=== PATIENT | female | born 1945 | race Caucasian/White ===

== ENCOUNTER 2017-07-18 06:59 | Inpatient (IN) | payer MEDICARE ==
--- NOTE | 2017-07-15 14:56 | Diagnostic Imaging Report ---
PROCEDURE: Frontal and lateral views of the chest. COMPARISON: Patients [facility], , CHEST 2 VIEWS, 06/25/2014, 15:38. INDICATIONS: PRE OPERATIVE CHEST X-RAY FOR HIP SX FINDINGS: Lines/tubes: None. Lungs: The lungs are well inflated and clear. There is no evidence of pneumonia or pulmonary edema. Pleura: There is no pleural effusion or pneumothorax. Heart and mediastinum: Cardiac silhouette is unremarkable. Pulmonary vasculature is normal. Bones: No acute bony abnormality. Partially visualized fusion hardware in the lower cervical spine. Increase in the acromiohumeral interval bilaterally, likely reflecting laxity IMPRESSION: 1. No acute cardiopulmonary abnormalities. Tone Valerio M.D. Dictated by: Tone Valerio M.D. on 07/15/2017 at 15:05 Electronically approved by: Tone Valerio M.D. on 07/15/2017 at 15:05
[~2017-07-18] VITALS: Ht 160 cm; Wt 71.4 kg
[~2017-07-18 06:59] MED LIST: AMLODIPINE BESYL5 MG PO; ASPIRIN EC81 MG PO; ATORVASTATIN CA10 MG PO; BIOTIN10 MG PO; CALCIUM GUMMY; CENTRUM SILVER1 EAC3 PO; CHOLECALCIFEROL; D3 PO; FISH OIL 1,2001 EACH PO; GABAPENTIN300 MG PO; GARLIC1000 MG PO; GLUCOSAMINE1000 MG PO; GUMMI BEAR MUL1 EACH; HYDROCHLOROTHIA25 MG PO; LOSARTAN POTASS25 MG PO; MAGNESIUM27 MG PO; METHOCARBAMOL750 MG PO; NAPROXEN250 MG PO; OSTEO BI-FLEX1 EAC2; POTASSIUM GLUCONATE PO
[2017-07-18] MEDS ORDERED: DEXAMETHASONE SOD PHOS 10 MG/1 ML VIAL ONE (07:20)
[2017-07-18] MEDS ORDERED: CELECOXIB 200 MG CAP ONE (07:20)
[2017-07-18] MEDS ORDERED: GABAPENTIN 300 MG CAP ONE (07:20)
[2017-07-18] MEDS ORDERED: CEFAZOLIN SOD 2 GM/D5W 50ML 50 ML IV ONE (07:21)
[2017-07-18] MEDS ORDERED: ROPIVACAINE 246.25 MG, EPINEPHRINE HCL 1:1000 0.5 MG, CLONIDINE HCL 0.08 MG, KETOROLAC ... INJ ONE ×5 (07:30)
[2017-07-18] MEDS ORDERED: BUPIVACAINE 7.5MG/ML /DEXTROSE 82.5MG/ML 2 ML AMP INJ ONE (07:58)
[2017-07-18] MEDS ORDERED: MUPIROCIN 2% OINT 22 GM TUBE ONE (08:03)
[2017-07-18] MEDS ORDERED: BACITRACIN 50,000 UNIT VIAL ONE (08:04)
[2017-07-18] MEDS ORDERED: TRANEXAMIC ACID 1,000 MG/10 ML ML ONE (08:04)
[2017-07-18] MEDS ORDERED: DIPHENHYDRAMINE HCL INJ 50 MG/ML VIAL IM/IV PRN (09:45)
[2017-07-18] MEDS ORDERED: ONDANSETRON HCL INJ 2 MG/ML VIAL IV PRN (09:45)
[2017-07-18] MEDS ORDERED: PROMETHAZINE HCL (IM) 25 MG/ML VIAL INJ PRN (09:45)
[2017-07-18] MEDS ORDERED: DOCUSATE SODIUM 100 MG CAP PO PRN (09:45)
[2017-07-18] MEDS ORDERED: ACETAMINOPHEN 650 MG SUPP PR PRN (09:45)
[2017-07-18] MEDS ORDERED: ZOLPIDEM TARTRATE 5 MG TAB PO PRN (09:45)
--- NOTE | 2017-07-18 10:30 | Operative Report ---
DATE OF PROCEDURE: July 18, 2017 POWER WHEELCHAIR MECHANIC: Sudarshan Johnson PA-C The patient was brought to the operating room for induction of anesthesia. Throughout this case, my PA's assistance was necessary for retraction of soft tissue and positioning of the extremity. This allows for efficient and technically successful execution of the operation and is considered medically necessary. PREOPERATIVE DIAGNOSIS: Osteoarthritis, right hip. POSTOPERATIVE DIAGNOSIS: Osteoarthritis, right hip. PROCEDURE: Right total hip arthroplasty. INDICATIONS: The patient is a 81-year-old lady with end-stage arthritis of both hips. She is more symptomatic on the right. She has failed conservative management and would like to proceed with a right total hip replacement. I have reviewed the risks and benefits. All of her questions have been answered. She states she understands and wishes to proceed. DESCRIPTION OF PROCEDURE: The patient was brought to the operating room and given a spinal anesthetic. She received prophylactic antibiotics and tranexamic acid in the holding area. She was given a light general anesthetic and positioned in the left lateral decubitus position. Her right hip was prepped and draped in a sterile manner. Severe contracture of the hip was noted during prepping. A preoperative time out was performed. A limited incision posterior approach was made to the right hip. Hemostasis was obtained with electrocautery. Abundant subcutaneous adipose tissue was encountered. A deep Charnley self-retaining retractor was placed. Care was taken to avoid injury to the sciatic nerve. The posterior capsule was carefully exposed, and additional hemostasis was obtained with electrocautery. The capsule was released as were the piriformis and short external rotators. The hip was dislocated. Complete loss and erosive arthritis of the articular cartilage were noted. An oscillating saw was used to resect the femoral head. Acetabular retractors were then placed. The remnant of the labrum was mostly calcified. The true floor of the acetabulum was established with a 46-mm reamer. A Karol [employer] system was used. The socket was carefully reamed up to 53 mm. A large subchondral cyst in the superior dome was debrided with a curet. Autologous bone graft taken from the shaft of the femur was then impacted into the previous cystic lesion. The hip was thoroughly irrigated. A 54 mm outer diameter OsseoTi socket was impacted into place. Excellent fixation was obtained. Fixation was augmented with a single 25-mm screw placed into the ilium. A highly crosslink polyethylene liner with no posterior elevation and a 36-mm inner diameter was then impacted into place. Care was taken to make sure that there was no evidence of soft-tissue interposition. A portion of a 100-mL premixed pericapsular MURPHY injection was placed around the socket. The socket was packed with moistly soaked lap sponge, and attention was directed towards the proximal femur. A taper pin reamer was used to establish entry to the femoral canal. The Taperloc broaches were then impacted and trialed. A #9 stem had good stability for trial reduction. A standard 36-mm head was felt to provide optimal sabianism of limb length and stability. The trial implants were removed. The hip was further irrigated with a shower-tip pulsatile lavage. The remainder of the pericapsular injection was placed. The implant was seated. The trunnion was cleaned and was completely dry when a 36-mm head with a standard neck was seated onto the trunnion. A final reduction was performed. The hip was put through range of motion and felt to be stable. The posterior capsule was repaired with interrupted #2 Ethibond. The piriformis was also seated over the posterior capsule and tensioned with #2 Ethibond. The tensor fascia and gluteal fascia were closed with interrupted #2 Ethibond. The skin was closed with subcuticular Vicryl and rosie. A sterile bandage was applied. Estimated blood loss was about 50 mL. At the end of the procedure, all needle and sponge counts were correct. Job#: [id number]
--- NOTE | 2017-07-18 12:05 | Diagnostic Imaging Report ---
PROCEDURE:X-RAY PELVIS, AP VIEW COMPARISON:01/17/2017 right hip radiographs INDICATIONS:POST OP RIGHT HIP FINDINGS: refer to conclusion CONCLUSION: Status post total right hip arthroplasty with intact and appropriately positioned acetabular And femoral stem components. Expected subcutaneous gas and skin rosie. No periprosthetic displaced fracture. Advanced degenerative joint disease of the left hip. Dictated by: Papo Redd M.D. on 07/18/2017 at 12:14 Electronically approved by: Papo Redd M.D. on 07/18/2017 at 12:14
[2017-07-18] MEDS: SODIUM CHLORIDE 0.9% 1000ML 1,000 ML IV SCH ×2 (12:22→19:39)
[2017-07-18] MEDS: ACETAMINOPHEN 1000 MG/100 ML IV SCH ×3 (12:22→23:45)
[2017-07-18 12:32] VITALS: BP 118/59
[2017-07-18 12:33] VITALS: BP 118/59
[2017-07-18 12:34] VITALS: BP 118/59
[2017-07-18] MEDS ORDERED: MIDAZOLAM HCL 2 MG/2 ML VIAL ONE (12:50)
[2017-07-18] MEDS ORDERED: FENTANYL CITRATE/PF 100MCG/2 ML INJ ONE (12:50)
[2017-07-18] MEDS: CEFAZOLIN SOD 1 GM VIAL IV SCH ×2 (13:55→21:51)
[2017-07-18] MEDS ORDERED: CEFAZOLIN SOD 1 GM/NS 50ML 50 ML IV SCH (14:00)
[2017-07-18] MEDS ORDERED: NEOSTIGMINE 5 MG/5ML SYR ONE (15:15)
[2017-07-18] MEDS ORDERED: PROPOFOL IV EMULSION 10 MG/ML 20 ML VIAL ONE (15:15)
[2017-07-18] MEDS ORDERED: DEXAMETHASONE SOD PHOS INJ 4 MG/ML VIAL ONE (15:15)
[2017-07-18] MEDS ORDERED: ONDANSETRON HCL INJ 2 MG/ML VIAL ONE (15:15)
[2017-07-18] MEDS ORDERED: KETOROLAC TROMETHAMINE 30 MG/ML VIAL ONE (15:15)
[2017-07-18] MEDS ORDERED: SEVOFLURANE INHAL SOLN 250 ML PEN BTL ONE (15:15)
[2017-07-18] MEDS ORDERED: LIDOCAINE HCL 2% LOCAL INJ 5 ML SDV VIAL INJ ONE (15:15)
[2017-07-18] MEDS ORDERED: GLYCOPYRROLATE INJ 1MG/ 5 ML SYR ONE (15:15)
[2017-07-18 15:44] VITALS: BP_SYST 134; BP_SYST 141; BP_DIAS 60; BP_DIAS 72
[2017-07-18] MEDS: CELECOXIB 200 MG CAP PO SCH (16:39)
[2017-07-18] MEDS: ASPIRIN 325 MG TAB PO SCH (16:39)
[2017-07-18] MEDS: KETOROLAC TROMETHAMINE 30 MG/ML VIAL IV PRN (16:51)
[2017-07-18] MEDS ORDERED: CELECOXIB 100 MG CAP PO SCH (17:00)
[2017-07-18] MEDS: HYDROCODONE/APAP 7.5MG-325MG 1 EA TAB PO PRN (17:37)
[2017-07-18 19:53] VITALS: BP 135/69
[2017-07-18 20:35] VITALS: BP 135/69
[2017-07-18] MEDS ORDERED: ATORVASTATIN 10 MG TAB PO SCH (21:00)
[2017-07-19 00:08] VITALS: BP 129/71
[2017-07-19 04:25] VITALS: BP 130/65
[2017-07-19] MEDS: SODIUM CHLORIDE 0.9% 1000ML 1,000 ML IV SCH (05:39)
[2017-07-19] MEDS: ACETAMINOPHEN 1000 MG/100 ML IV SCH (06:00)
[2017-07-19] MEDS: HYDROCODONE/APAP 5MG-325MG TAB PO PRN ×2 (06:12→12:17)
[2017-07-19] MEDS: CEFAZOLIN SOD 1 GM VIAL IV SCH (06:12)
[2017-07-19 06:58] LABS: HEMATOCRIT 31.1 % (34.2-44.1); HEMOGLOBIN 10.5 g/dL (12.0-16.0)
[2017-07-19 08:01] VITALS: BP 124/67
[2017-07-19] MEDS: HYDROCODONE/APAP 7.5MG-325MG 1 EA TAB PO PRN (08:14)
[2017-07-19] MEDS: ASPIRIN 325 MG TAB PO SCH (08:14)
[2017-07-19] MEDS: CELECOXIB 200 MG CAP PO SCH (08:14)
[2017-07-19] MEDS ORDERED: ASPIRIN325 MG PO (08:26)
[2017-07-19 08:33] VITALS: BP 124/67
[2017-07-19] MEDS ORDERED: HYDROCHLOROTHIAZIDE 25 MG TAB PO SCH (09:00)
[2017-07-19] MEDS ORDERED: AMLODIPINE BESYLATE 5 MG TAB PO SCH (09:00)
[2017-07-19] MEDS ORDERED: ACETAMINOPHEN 1000 MG/100 ML IV PRN (09:45)
[2017-07-19] MEDS: KETOROLAC TROMETHAMINE 30 MG/ML VIAL IV PRN (12:17)
== END 2017-07-19 14:49 | disposition home health service (06) | DRG 470 ==
LOC: OR 06:59 → MED/SURG 10:49
PROVIDERS: ADMIT Specialist; ATTEND Specialist
PROC: 0SR904Z Replacement of Right Hip Joint with Ceramic on Polyethylene Synthetic Substitute, Open Approach (ICD-10-PCS; principal; 2017-07-18 08:30)
DX: M16.11 Unilateral primary osteoarthritis, right hip (principal); I10 Essential (primary) hypertension; D64.9 Anemia, unspecified
CPT/HCPCS: 36415; 71020; 72170; 85014; 85018; 86850; 86900; 86920; 93005; 97139; C1713; J0171; J0690; J1100; J1885; J2001; J2250; J2405; J2795; J7030

== ENCOUNTER 2017-07-31 13:38 | Emergency (ER) | payer OTHER ==
[~2017-07-31] VITALS: Ht 160 cm; Wt 68.0 kg
[~2017-07-31 13:38] MED LIST changes: +ASPIRIN325 MG PO
--- OUTSIDE RECORDS SUMMARY | 2017-07-31 13:41 | XMS REPORT ---
Author Author [facility] Address Unknown Phone Unavailable Care Team Providers Care Stapler Coil Unit Name Role Phone ALEJANDRO RAPP Unavailable Unavailable Problems This patient has no known problems. Allergies, Adverse Reactions, Alerts This patient has no known allergies or adverse reactions. Medications This patient has no known medications. Results Test Description Test Time Test Comments Text Results Atomic Results Result Comments PELVIS AP 1-2 VIEWS [place] [address] Patient Name: LINO HERNANDEZ MR #: [id number] : 1945 Age/Sex: 71/F Req # : [id number] [facility] Physician: ALEJANDRO RAPP MD Ordered by: ALEJANDRO RAPP MD Report #: [id number] Location: MED/SURG Room/Bed: [facility] _ Procedure: [id number] DX/PELVIS AP 1-2 VIEWS Exam Date: 07/18/17 Exam Time: 1020 REPORT STATUS: Signed PROCEDURE: X- RAY PELVIS, AP VIEW COMPARISON: 01/17/2017 right hip radiographs INDICATIONS: POST OP RIGHT HIP FINDINGS: refer to conclusion CONCLUSION: Status post total right hip arthroplasty with intact and appropriately positioned acetabular And femoral stem components. Expected subcutaneous gas and skin rosie. No periprosthetic displaced fracture. Advanced degenerative joint disease of the left hip. Dictated by: Alejandro Nascimento M.D. on 07/18/2017 at 12:14 Electronically approved by: Alejandro Nascimento M.D. on 07/18/2017 at 12:14 Dictated By: ALEJANDRO NASCIMENTO MD 13 Transcribed By: GIANNA on 07/18/171213 COPY TO: ALEJANDRO RAPP MD CHEST 2 VIEWS [place] [address] Patient Name: LINO HERNANDEZ MR #: [id number] : 1945 Age/Sex: 71/F Req #: [id number] Adm Physician: Ordered by: JACOB SHORT MD Report #: [id number] Location: OR Room/Bed: Procedure: [id number] DX/CHEST 2 VIEWS Exam Date: Exam Time: REPORT STATUS: Signed PROCEDURE: Frontal and lateral views of the chest. COMPARISON: [facility], DX, CHEST 2 VIEWS, 06/25/2014, 15: 38. INDICATIONS: PRE OPERATIVE CHEST X-RAY FOR HIP SX FINDINGS : Lines/tubes: None. Lungs: The lungs are well inflated and clear. There is no evidence of pneumonia or pulmonary edema. Pleura: There is no pleural effusion or pneumothorax. Heart and mediastinum: Cardiac silhouette is unremarkable. Pulmonary vasculature is normal. Bones: No acute bony abnormality. Partially visualized fusion hardware in the lower cervical spine. Increase in the acromiohumeral interval bilaterally, likely reflecting laxity IMPRESSION: 1. No acute cardiopulmonary abnormalities. Marisol Valerio M.D. Dictated by: Marisol Valerio M.D. on 07/15/2017 at 15:05 Electronically approved by: Marisol Valerio M.D. on 07/15/2017 at 15:05 Dictated By: MARISOL VALERIO MD 150 Transcribed By: GIANNA on 07/15/17 1500 COPY TO: JACOB SHORT MD
[2017-07-31] MEDS ORDERED: BACITRACIN ZINC 0.9GM TP ONE (14:00)
[2017-07-31 14:56] LABS: BASOPHILS # (AUTO) 0.1 (0.0-0.1); BASOPHILS % 0.5 % (0.0-1.0); EOSINOPHILS # (AUTO) 0.1 (0.0-0.4); EOSINOPHILS % 0.7 % (0.0-6.0); HEMATOCRIT 31.5 % (34.2-44.1); HEMOGLOBIN 10.4 g/dL (12.0-16.0); LYMPHOCYTES # (AUTO) 2.2 (1.0-3.2); LYMPHOCYTES % 15.1 % (18.0-39.1); MEAN CORPUSCULAR HEMOGLOBIN 29.5 pg (28-32); MEAN CORPUSCULAR VOLUME 89.2 fL (81-99); MONOCYTES # (AUTO) 0.7 (0.2-0.8); MONOCYTES % 4.9 % (4.4-11.3); NEUTROPHILS # (AUTO) 11.5 (2.1-6.9); NEUTROPHILS % 77.9 % (38.7-80.0); PLATELET COUNT 450 x10e3/uL (140-360); RED BLOOD COUNT 3.53 x10e6/uL (3.6-5.1); RED CELL DISTRIBUTION WIDTH 12.7 % (11.7-14.4)
[2017-07-31 15:01] LABS: INR 0.97; PROTHROMBIN TIME 13.4 seconds (11.9-14.5)
[2017-07-31 16:18] VITALS: BP 139/73
[2017-08-03] MEDS ORDERED: KEFLEX500 MG PO (10:57)
[2017-08-03] MEDS ORDERED: BLADDER CONTROL (10:58)
== END 2017-07-31 16:28 | disposition home or self-care (01) ==
LOC: ER 13:38
DX: Z48.01 Encounter for change or removal of surgical wound dressing (principal)
CPT/HCPCS: 36415; 85025; 85610; 85730; 99283

== ENCOUNTER 2017-08-04 10:54 | Inpatient (IN) | payer MEDICARE, OTHER ==
[~2017-08-04] VITALS: Ht 160 cm; Wt 69.6 kg
[~2017-08-04 10:54] MED LIST changes: +BLADDER CONTROL; +KEFLEX500 MG PO
--- OUTSIDE RECORDS SUMMARY | 2017-08-04 10:56 | XMS REPORT | Continuity of Care Document ---
Author Author [facility] Organization [facility] Address [address] [place] [address] Phone Unavailable Care Team Providers Care Plate Slitter And Inspector Name Role Phone RICHELLE FLORES PCP Insurance Providers Guarantor Zoraida Hernandez Address [address] [place] [address] Email [email or web address] [facility] Policy Number [id number] Subscriber's Name Hernandez,Zoraida Relationship 18 Self / Same As Patient Group Number [id number] Effective Date 11 Advance Directives Directive Response Recorded Date/Time Does the patient have an advance directive? No 07/18/17 12:07pm If yes, is advance directive on file with [facility]? No 09/07/11 10:38am If not on file with [facility] will patient provide a copy? No 09/07/11 10:38am Do you have a Directive to Physician? No 07/31/17 2:28pm Do you have a Medical Power of Sql Engineer? No 07/31/17 2:28pm Do you have an out of hospital Do Not Resuscitate Order? No 07/31/17 2:28pm Do you have any special needs we should be aware of? No 07/31/17 2:28pm Do you have a support person here with you today? Yes 07/31/17 2:28pm Did patient receive Notice of Privacy Practices? Yes 07/31/17 2:28pm Did patient receive patient rights and responsibilities? Yes 07/31/17 2:28pm Problems No problem information available. Medications Current Home Medications Medication Dose Units Route Directions Days Qty Instructions Start Date Amlodipine Besylate 5 Mg Tablet 5 Mg Oral Daily 30 Tab Aspirin 325 Mg Tablet 325 Mg Oral Twice A Day 21 Days 07/19/17 Atorvastatin Calcium 10 Mg Tablet 10 Mg Oral Today At 9:00PM 30 Tab Biotin 10 Mg Tablet 10 Mg Oral Daily Calcium Gummy D3 Gummy Glucosamine Sulfate 2KCL (Glucosamine) 1,000 Mg Tablet Oral Daily Hydrochlorothiazide 25 Mg Tablet 25 Mg Oral Daily 30 Tab Magnesium Amino Acid Chelate (Magnesium) 27 Mg Tablet 250 Mg Oral Daily Mu-Vits-Min Th/Lycopene/Lutein (Centrum Silver Tablet) 1 Each Tablet Oral Daily Potassium Gluconate 595 Mg Oral Daily Past Home Medications Medication Directions Ordered Status Aspirin (Aspirin Ec) 81 Mg Tablet.dr, 81 Mg Oral Daily Discontinued D3 , 5000 Intlu Oral Daily Discontinued Fish Oil/Dha/Epa (Fish Oil 1,200 Mg Fish Oil) 1 Each Capsule, 1200 Mg Oral Daily Discontinued Gabapentin 300 Mg Capsule, 300 Mg Oral Bedtime Discontinued Garlic 1,000 Mg Capsule, 1000 Oral Daily Discontinued Glucosamine/D3/Boswellia Rosalind (Osteo Bi-Flex Caplet) 1 Each Tablet, Discontinued Losartan Potassium 25 Mg Tablet, 25 Mg Oral Daily Discontinued Methocarbamol 750 Mg Tablet, 750 Mg Oral Bedtime Discontinued Multivitamin (Gummi Bear Multivitamin) 1 Each Tab.chew, Discontinued Naproxen 250 Mg Tablet, 500 Mg Oral Twice A Day Discontinued Social History Social History Problem Response Recorded Date/Time Onset Date Status Hx Psychiatric Problems No 07/18/2017 12:07pm Not Applicable Not Applicable Hx Eating Disorder No 07/18/2017 12:07pm Not Applicable Not Applicable Hx Substance Use Disorder No 07/18/2017 12:07pm Not Applicable Not Applicable Hx Depression No 07/18/2017 12:07pm Not Applicable Not Applicable Hx Alcohol Use No 07/18/2017 12:07pm Not Applicable Not Applicable Hx Substance Use Treatment No 07/18/2017 12:07pm Not Applicable Not Applicable Hx Physical Abuse No 07/18/2017 12:07pm Not Applicable Not Applicable Smoking Status Start Date Stop Date Never Smoker Hospital Discharge Instructions No hospital discharge instruction information available. Plan of Care Discharge Date 07/31/17 4:28pm Disposition HOME, SELF-CARE Condition at Discharge Stable Instructions/Education Provided Wound Care (General) Forms Provided Work/School Excuse Prescriptions See Medication Section Referrals RICHELLE FLORES Address: [address] [place] [address] [place]IM[place] [address] Additional Instructions/Education Your diagnosis today is Wound check. Follow up with your Orthopedic surgeon on Tuesday as instructed by your doctor. Return to ER for any worsening symptoms or concerns. Take Keflex as prescribed. No strenuous activity. Functional Status No functional status information available. Allergies, Adverse Reactions, Alerts Allergen Type Severity Reaction Status Last Updated Ibuprofen Allergy Intermediate HIVES Active 07/31/17 Immunizations No immunization information available. Vital Signs Acute Vital Signs Vital Response Date/Time Temperature (Fahrenheit) 96.7 degrees F (97.6 - 99.5) 07/19/2017 8:33am Pulse Pulse Rate (adult) 83 bpm (60 - 90) 07/31/2017 4:18pm Respiratory Rate 16 bpm (12 - 24) 07/31/2017 4:18pm Blood Pressure 139/73 mm Hg 07/31/2017 4:18pm Height 5 ft 3 in 07/31/2017 1:57pm Weight 150 lb 07/31/2017 1:57pm Body Mass Index 26.6 kg/m^2 07/31/2017 1:57pm Results Laboratory Results Test Name Result Units Flags Reference Collection Date/Time Result Date/ Time Comments White Blood Count 14.75 x10e3/uL H 4.8-10.8 07/31/2017 2:20pm 2017 2:59pm Red Blood Count 3.53 x10e6/uL L 3.6-5.1 07/31/2017 2:20pm 07/31/2017 2: 59pm Hemoglobin 10.4 g/dL L 12.0-16.0 07/31/2017 2:20pm 07/31/2017 2:59pm Hematocrit 31.5 % L 34.2-44.1 07/31/2017 2:20pm 07/31/2017 2:59pm Mean Corpuscular Volume 89.2 fL 81-99 07/31/2017 2:20pm 07/31/2017 2: 59pm Mean Corpuscular Hemoglobin 29.5 pg 28-32 07/31/2017 2:20pm 07/31/2017 2:59pm Mean Corpuscular Hemoglobin Concent 33.0 g/dL 31-35 07/31/2017 2:20pm 07/31/2017 2:59pm Red Cell Distribution Width 12.7 % 11.7-14.4 07/31/2017 2:20pm 2017 2:59pm Platelet Count 450 x10e3/uL H 140-360 07/31/2017 2:20pm 07/31/2017 2: 59pm Neutrophils (%) (Auto) 77.9 % 38.7-80.0 07/31/2017 2:20pm 07/31/2017 2: 59pm Lymphocytes (%) (Auto) 15.1 % L 18.0-39.1 07/31/2017 2:20pm 07/31/2017 2 :59pm Monocytes (%) (Auto) 4.9 % 4.4-11.3 07/31/2017 2:20pm 07/31/2017 2: 59pm Eosinophils (%) (Auto) 0.7 % 0.0-6.0 07/31/2017 2:20pm 07/31/2017 2: 59pm Basophils (%) (Auto) 0.5 % 0.0-1.0 07/31/2017 2:20pm 07/31/2017 2:59pm IM GRANULOCYTES % 0.9 % 0.0-1.0 07/31/2017 2:20pm 07/31/2017 2:59pm Neutrophils # (Auto) 11.5 H 2.1-6.9 07/31/2017 2:20pm 07/31/2017 2: 59pm Lymphocytes # (Auto) 2.2 1.0-3.2 07/31/2017 2:20pm 07/31/2017 2:59pm Monocytes # (Auto) 0.7 0.2-0.8 07/31/2017 2:20pm 07/31/2017 2:59pm Eosinophils # (Auto) 0.1 0.0-0.4 07/31/2017 2:20pm 07/31/2017 2:59pm Basophils # (Auto) 0.1 0.0-0.1 07/31/2017 2:20pm 07/31/2017 2:59pm Absolute Immature Granulocyte (auto 0.13 x10e3/uL H 0-0.1 07/31/2017 2: 20pm 07/31/2017 2:59pm Prothrombin Time 13.4 seconds 11.9-14.5 07/31/2017 2:20pm 07/31/2017 3: 03pm Prothromb Time International Ratio 0.97 07/31/2017 2:20pm 2017 3:03pm Oral Anticoagulant Therapy INR Values: 1. Low Intensity Therapy 1.5 - 2.0 2. Moderate Intensity Therapy 2.0 - 3.0 3. High Intensity Therapy(1) 2.5 - 3.5 4. High Intensity Therapy(2) 3.0 - 4.0 5. Panic Value INR > 5.0 Activated Partial Thromboplast Time 36.0 seconds H 23.8-35.5 07/31/2017 2 :20pm 07/31/2017 3:03pm Procedures Procedure Status Date Provider(s) REPLACEMENT OF R HIP JT WITH CERAMIC ON POLY, OPEN APPROACH Completed ALEJANDRO RAPP MD X-ray of chest, two views Active 07/15/17 JACOB SHORT MD Encounters Encounter Location Arrival/Admit Date Discharge/Depart Date Attending Provider Departed Emergency Room [facility] 07/31/17 1:38pm 4:28pm NAUN PRECIADO MD Discharged Inpatient [facility] 07/18/17 10:49am 2:49pm ALEJANDRO RAPP MD Registered Clinic [facility] 01/17/17 4:55pm RICHELLE FLORES
[2017-08-04] MEDS ORDERED: BACITRACIN 50,000 UNIT VIAL ONE (11:15)
[2017-08-04] MEDS ORDERED: OXYBUTYNIN CHLOR5 M1 PO (11:35)
[2017-08-04] MEDS ORDERED: BUPIVACAINE HCL 0.5% INJ 30 ML VIAL INJ ONE (11:47)
[2017-08-04] MEDS ORDERED: VANCOMYCIN 1GM/NS 250 ML 250 ML ONE (11:48)
[2017-08-04] MEDS ORDERED: KETOROLAC TROMETHAMINE 30 MG/ML VIAL IV PRN (12:45)
[2017-08-04] MEDS ORDERED: ONDANSETRON HCL INJ 2 MG/ML VIAL IV PRN (12:45)
[2017-08-04] MEDS ORDERED: ACETAMINOPHEN 650 MG SUPP PR PRN (12:45)
[2017-08-04] MEDS ORDERED: DOCUSATE SODIUM 100 MG CAP PO PRN (12:45)
[2017-08-04] MEDS ORDERED: DIPHENHYDRAMINE HCL INJ 50 MG/ML VIAL IM/IV PRN (12:45)
[2017-08-04] MEDS ORDERED: HYDROCODONE/APAP 5MG-325MG TAB PO PRN (12:45)
[2017-08-04] MEDS ORDERED: HYDROCODONE/APAP 7.5MG-325MG 1 EA TAB PO PRN (12:45)
[2017-08-04] MEDS ORDERED: PROMETHAZINE HCL (IM) 25 MG/ML VIAL INJ PRN (12:45)
[2017-08-04] MEDS ORDERED: FENTANYL CITRATE/PF 100MCG/2 ML INJ ONE ×2 (13:14→18:38)
--- NOTE | 2017-08-04 13:49 | Operative Report ---
DATE OF PROCEDURE: August 04, 2017 HEARING IMPAIRED TEACHER: Sudarshan Johnson PA-C The patient was brought to the operating room for induction of anesthesia. Throughout this case, my PA's assistance was necessary for retraction of soft tissue and positioning of the extremity. This allows for efficient and technically successful execution of the operation and is considered medically necessary. PREOPERATIVE DIAGNOSIS: Right hip wound hematoma. POSTOPERATIVE DIAGNOSIS: Right hip wound hematoma. PROCEDURE: Irrigation and debridement, evacuation of hematoma, right hip. INDICATIONS: The patient is a 71-year-old lady who is a little over 2 weeks status post a right total hip replacement. She had notified the office that she had some punctate drainage. She presented to the office earlier this week and had a dry bandage. We elected to observe this. She presented yesterday and again had a dry bandage. However, she had some pictures of a gauze pad that had become saturated with bloody drainage. For this reason, we have scheduled her for a right hip irrigation and debridement. The risks and benefits have been explained. The wound shows no signs of erythema. She has been on aspirin, and we have stopped this. She states she understands the plan of care and wishes to proceed. DESCRIPTION OF PROCEDURE: The patient was brought to the operating room and placed under general anesthetic. She was positioned in the left lateral decubitus position. Her right hip was prepped and draped in a sterile manner. A preoperative time out was performed. There was no drainage whatsoever throughout prepping and draping. The distal portion of the incision was opened up. There was, indeed, a fairly large liquified hematoma. This was thoroughly evacuated. Because of the size, I elected to extend the incision further proximally. All of the skin edges appeared healthy. What suspicious-looking tissue there was was sharply excised with a surgical knife. The wound was scrubbed with Betadine. The wound was thoroughly irrigated with a shower-tip pulsatile lavage. At the end of the debridement, all of the tissue appeared healthy. The hematoma was superficial. The incision was closed with numerous interrupted 2-0 Prolene stitches. A sterile wound vacuum was applied. The patient was extubated and transported to the recovery room in stable condition. Cultures were taken upon entering the wound. After that, vancomycin was started. She was transported to the recovery room in stable condition. Job#: [id number]
[2017-08-04 14:21] VITALS: BP 155/74
[2017-08-04 14:31] VITALS: BP 155/74
[2017-08-04 16:00] VITALS: BP 122/73
[2017-08-04] MEDS: SODIUM CHLORIDE 0.9% 1000ML 1,000 ML IV SCH ×2 (17:44→22:24)
[2017-08-04] MEDS: CELECOXIB 200 MG CAP PO SCH (17:44)
[2017-08-04] MEDS: ACETAMINOPHEN 1000 MG/100 ML IV SCH (17:44)
[2017-08-04] MEDS ORDERED: DEXAMETHASONE SOD PHOS INJ 4 MG/ML VIAL ONE (18:05)
[2017-08-04] MEDS ORDERED: PROPOFOL IV EMULSION 10 MG/ML 20 ML VIAL ONE (18:05)
[2017-08-04] MEDS ORDERED: ONDANSETRON HCL INJ 2 MG/ML VIAL ONE (18:05)
[2017-08-04] MEDS ORDERED: LIDOCAINE HCL 2% LOCAL INJ 5 ML SDV VIAL INJ ONE (18:05)
[2017-08-04] MEDS ORDERED: SEVOFLURANE INHAL SOLN 250 ML PEN BTL ONE (18:05)
[2017-08-04] MEDS ORDERED: MIDAZOLAM HCL 2 MG/2 ML VIAL ONE (18:38)
[2017-08-04 20:00] VITALS: BP 142/63
[2017-08-04] MEDS ORDERED: ZOLPIDEM TARTRATE 5 MG TAB PO PRN (21:00)
[2017-08-04] MEDS: VANCOMYCIN 1GM/NS 250 ML 250 ML IV SCH (22:00)
[2017-08-05] MEDS: ACETAMINOPHEN 1000 MG/100 ML IV SCH ×3 (01:30→12:00)
[2017-08-05 02:14] VITALS: BP 129/60
[2017-08-05 04:00] VITALS: BP 125/72
[2017-08-05 06:49] LABS: HEMATOCRIT 28.1 % (34.2-44.1); HEMOGLOBIN 9.1 g/dL (12.0-16.0)
[2017-08-05 08:00] VITALS: BP 153/81
[2017-08-05] MEDS: CELECOXIB 200 MG CAP PO SCH (08:36)
[2017-08-05] MEDS: SODIUM CHLORIDE 0.9% 1000ML 1,000 ML IV SCH (08:38)
[2017-08-05] MEDS: VANCOMYCIN 1GM/NS 250 ML 250 ML IV SCH (09:40)
[2017-08-05 12:00] VITALS: BP 138/77
[2017-08-05] MEDS ORDERED: ACETAMINOPHEN 1000 MG/100 ML IV PRN (12:45)
== END 2017-08-05 13:34 | disposition home or self-care (01) | DRG 464 ==
LOC: OR 10:54 → MED/SURG2 13:59
PROVIDERS: ADMIT Specialist; ATTEND Specialist
PROC: 0JBL0ZZ Excision of Right Upper Leg Subcutaneous Tissue and Fascia, Open Approach (ICD-10-PCS; principal; 2017-08-04 11:54)
DX: T84.51XA Infection and inflammatory reaction due to internal right hip prosthesis, initial encounter (principal); M96.830 Postprocedural hemorrhage of a musculoskeletal structure following a musculoskeletal system procedure; I10 Essential (primary) hypertension; Z96.641 Presence of right artificial hip joint; D64.9 Anemia, unspecified; M16.11 Unilateral primary osteoarthritis, right hip
CPT/HCPCS: 36415; 85014; 85018; 86850; 86870; 86880; 86900; 86905; 86920; 87071; 87075; 87186; 87205; 99001; J1100; J1200; J2001; J2250; J2405; J3370; J7030

== ENCOUNTER 2017-08-09 15:02 | Inpatient (IN) | payer MEDICARE, OTHER ==
[~2017-08-09] VITALS: Ht 160 cm; Wt 68.0 kg
[~2017-08-09 15:02] MED LIST changes: +OXYBUTYNIN CHLOR5 M1 PO
--- OUTSIDE RECORDS SUMMARY | 2017-08-09 15:06 | XMS REPORT | Continuity of Care Document ---
Author Author [facility] Organization [facility] Address [address] [place] [address] Phone Unavailable Care Team Providers Care Industrial Management Teacher Name Role Phone RICHELLE FLORSE PCP Insurance Providers Guarantor Zoraida Hernandez Address [address] [place] [address] Email [email or web address] Payer [employer] Policy Number [id number] Subscriber's Name TyreseZoraida Relationship 18 Self / Same As Patient Group Number [id number] Effective Date 11 Advance Directives Directive Response Recorded Date/Time Does the patient have an advance directive? No 08/04/17 2:27pm If yes, is advance directive on file with [facility]? No 08/04/17 2:27pm If not on file with [facility] will patient provide a copy? No 08/04/17 2:27pm Do you have a Directive to Physician? No 08/03/17 10:11am Do you have a Medical Power of Healthcare Analyst? No 08/03/17 10:11am Do you have an out of hospital Do Not Resuscitate Order? No 08/03/17 10:11am Do you have any special needs we should be aware of? No 08/03/17 10:11am Do you have a support person here with you today? Yes 08/03/17 10:11am Did patient receive Notice of Privacy Practices? Yes 08/03/17 10:11am Did patient receive patient rights and responsibilities? Yes 08/03/17 10:11am Problems No problem information available. Medications Current Home Medications Medication Dose Units Route Directions Days Qty Instructions Start Date Amlodipine Besylate 5 Mg Tablet 5 Mg Oral Daily 30 Tab Atorvastatin Calcium 10 Mg Tablet 10 Mg Oral Today At 9:00PM 30 Tab Biotin 10 Mg Tablet 10 Mg Oral Daily Calcium Gummy Cephalexin Monohydrate (Keflex) 500 Mg Capsule Mg Oral Q 6 Hours D3 Gummy Glucosamine Sulfate 2KCL (Glucosamine) 1,000 Mg Tablet Oral Daily Hydrochlorothiazide 25 Mg Tablet 12.5 Mg Oral Daily 30 Tab Magnesium Amino Acid Chelate (Magnesium) 27 Mg Tablet 250 Mg Oral Daily Mu-Vits-Min Th/Lycopene/Lutein (Centrum Silver Tablet) 1 Each Tablet Oral Daily Oxybutynin Chloride (Oxybutynin Chloride Er) 5 Mg Tab.er.24 10 Mg Oral Daily Potassium Gluconate 595 Mg Oral Daily Past Home Medications Medication Directions Ordered Status Aspirin 325 Mg Tablet, 325 Mg Oral Twice A Day 07/19/17 Discontinued Aspirin (Aspirin Ec) 81 Mg Tablet.dr, 81 Mg Oral Daily Discontinued Bladder Control , Discontinued D3 , 5000 Intlu Oral Daily [...] Onset Date Status Hx Psychiatric Problems No 08/04/2017 2:27pm Not Applicable Not Applicable Hx Eating Disorder No 08/04/2017 2:27pm Not Applicable Not Applicable Hx Substance Use Disorder No 08/04/2017 2:27pm Not Applicable Not Applicable Hx Depression No 08/04/2017 2:27pm Not Applicable Not Applicable Hx Alcohol Use No 08/04/2017 2:27pm Not Applicable Not Applicable Hx Substance Use Treatment No 08/04/2017 2:27pm Not Applicable Not Applicable Hx Physical Abuse No 08/04/2017 2:27pm Not Applicable Not Applicable Smoking Status Start Date Stop Date Never Smoker Hospital Discharge Instructions No hospital discharge instruction information available. Plan of Care Discharge Date 08/05/17 1:34pm Disposition HOME, SELF-CARE Instructions/Education Provided Infection Control Prescriptions See Medication Section Referrals (Orthopedic) Order Date: 08/09/2017 Entered Date: 08/05/2017 8:54am Functional Status Query Response Date Recorded FUNCTIONAL STATUS . August 04, 2017 3:07pm Assistive Devices None August 04, 2017 2:31pm Ambulation Ability Independent August 04, 2017 2:31pm Toileting Ability Independent August 05, 2017 9:00am Allergies, Adverse Reactions, Alerts Allergen Type Severity Reaction Status Last Updated Ibuprofen Allergy Intermediate HIVES Active 07/31/17 Immunizations No immunization information available. Vital Signs Acute Vital Signs Vital Response Date/Time Temperature (Fahrenheit) 97.4 degrees F (97.6 - 99.5) 08/05/2017 12:00pm Pulse Pulse Rate (adult) 83 bpm (60 - 90) 08/05/2017 12:00pm Respiratory Rate 20 bpm (12 - 24) 08/05/2017 12:00pm Blood Pressure 138/77 mm Hg 08/05/2017 12:00pm Height 5 ft 3 in 08/04/2017 2:27pm Weight 153.44 lb 08/05/2017 2:15am Body Mass Index 27.2 kg/m^2 08/05/2017 2:15am Results Laboratory Results Test Name Result Units Flags Reference Collection Date/Time Result Date/ Time Comments White Blood Count 14.75 x10e3/uL H 4.8-10.8 07/31/2017 2:20pm 2017 2:59pm Red Blood Count 3.53 x10e6/uL L 3.6-5.1 07/31/2017 2:20pm 07/31/2017 2: 59pm Mean Corpuscular Volume 89.2 fL 81-99 07/31/2017 [...] H 23.8-35.5 07/31/2017 2 :20pm 07/31/2017 3:03pm Hemoglobin 9.1 g/dL L 12.0-16.0 08/05/2017 6:19am 08/05/2017 7:07am Hematocrit 28.1 % L 34.2-44.1 08/05/2017 6:19am 08/05/2017 7:07am Microbiology Results Procedure Source Organism/Result Collection Date/Time Result Date/Time Result Status Wound Culture Hip, Right GRAM NEGATIVE AVERY 08/04/2017 12:19pm 08/05/2017 10 :33am Preliminary Procedures Procedure Status Date Provider(s) REPLACEMENT OF R HIP JT WITH CERAMIC ON POLY, OPEN APPROACH Completed ALEJANDRO RAPP MD Incision and drainage Completed 08/04/17 ALEJANDRO RAPP MD X-ray of chest, two views Active 07/15/17 JACOB SHORT MD Encounters Encounter Location Arrival/Admit Date Discharge/Depart Date Attending Provider Discharged Inpatient [facility] 08/04/17 1:59pm 08/05/17 1:34pm ALEJANDRO RAPP MD Departed Emergency Room [facility] 07/31/17 1:38pm 4:28pm NAUN PRECIADO MD Discharged Inpatient [facility] 07/18/17 10:49am 2:49pm ALEJANDRO RAPP MD Registered Clinic [facility] 01/17/17 4:55pm RICHELLE FLORES
[2017-08-09] MEDS ORDERED: SODIUM CHLORIDE 0.9% 1000ML 1,000 ML IV STA (16:03)
[2017-08-09] MEDS ORDERED: CIPROFLOXACIN 400 MG/D5W 200ML 200 ML IV ONE (16:15)
[2017-08-09 17:08] LABS: BASOPHILS % 0.3 % (0.0-1.0); EOSINOPHILS # (AUTO) 0.1 (0.0-0.4); EOSINOPHILS % 0.9 % (0.0-6.0); HEMATOCRIT 34.7 % (34.2-44.1); HEMOGLOBIN 11.4 g/dL (12.0-16.0); LYMPHOCYTES # (AUTO) 2.5 (1.0-3.2); LYMPHOCYTES % 21.8 % (18.0-39.1); MEAN CORPUSCULAR HEMOGLOBIN 29.2 pg (28-32); MEAN CORPUSCULAR HGB CONC 32.9 g/dL (31-35); MEAN CORPUSCULAR VOLUME 88.7 fL (81-99); MONOCYTES # (AUTO) 0.8 (0.2-0.8); MONOCYTES % 7.3 % (4.4-11.3); NEUTROPHILS % 69.3 % (38.7-80.0); PLATELET COUNT 461 x10e3/uL (140-360); RED BLOOD COUNT 3.91 x10e6/uL (3.6-5.1)
--- NOTE | 2017-08-09 17:08 | Diagnostic Imaging Report ---
PROCEDURE: A single AP view of the chest. COMPARISON: [facility], , CHEST 2 VIEWS, 07/15/2017, 14:32. INDICATIONS: INFECTION FINDINGS: Lines/tubes: None. Lungs: The lungs are well inflated and clear. There is no evidence of pneumonia or pulmonary edema. Pleura: There is no pleural effusion or pneumothorax. Heart and mediastinum: The heart and the mediastinum are unremarkable. Bones: No acute bony abnormality. IMPRESSION: 1. No acute cardiopulmonary abnormalities. Tone Valerio M.D. Dictated by: Tone Valerio M.D. on 08/09/2017 at 17:07 Electronically approved by: Tone Valerio M.D. on 08/09/2017 at 17:07
[2017-08-09] MEDS: CEFEPIME HCL 1 GM VIAL IV SCH (17:10)
[2017-08-09] MEDS ORDERED: MORPHINE SULFATE 2 MG/ML SYR IV PRN (17:15)
[2017-08-09] MEDS ORDERED: ONDANSETRON HCL INJ 2 MG/ML VIAL IV PRN (17:15)
[2017-08-09 17:21] LABS: ALANINE AMINOTRANSFERASE 16 IU/L (0-55); ALBUMIN 3.9 g/dL (3.5-5.0); ALBUMIN/GLOBULIN RATIO 0.9 (0.8-2.0); ALKALINE PHOSPHATASE 118 IU/L (40-150); ANION GAP 13.7 mmol/L (8-16); BLOOD UREA NITROGEN 23 mg/dL (7-26); BUN/CREATININE RATIO 18 (6-25); CALCIUM 9.7 mg/dL (8.4-10.2); CARBON DIOXIDE 26 mmol/L (22-29); CHLORIDE 104 mmol/L (98-107); CREATINE KINASE 46 IU/L (29-168); CREATININE, SERUM 1.31 mg/dL (0.57-1.11); EST GLOMERULAR FILTRATION RATE 40 ML/MIN (60-); GLUCOSE 115 mg/dL (74-118); POTASSIUM 3.7 mmol/L (3.5-5.1); SODIUM 140 mmol/L (136-145)
[2017-08-09 18:33] VITALS: BP 159/69
[2017-08-09 20:00] VITALS: BP 148/81
[2017-08-09] MEDS ORDERED: DIPHENHYDRAMINE HCL 25 MG CAP PO PRN (20:30)
--- NOTE | 2017-08-09 20:53 | Diagnostic Imaging Report ---
A single frontal view of the chest. HISTORY: PICC LINE PLACEMENT COMPARISON: None available. DISCUSSION: Portable technique, limits sensitivity of the exam. Soft tissue attenuation partially limits sensitivity of the exam. Tubes/Lines: A right upper extremity PICC line, the tip of the catheter is partially obscured by the thoracic spine, but appears to project at the region of the superior vena cava. Lungs and pleura: The lungs appear well inflated. No evidence of a consolidative pneumonia or pulmonary alveolar edema. No definite pleural effusion or pneumothorax is identified. Heart and mediastinum: The cardiomediastinal silhouette appears unremarkable. Bones: No acute osseous lesion is identified, given this limited exam. IMPRESSION: Status post PICC line placement. Signed by: Dr. Adelso Ambriz D.O., M.M.M. on 08/09/2017 8:49 PM
[2017-08-09] MEDS: SODIUM CHLORIDE 0.9% 1000ML 1,000 ML IV SCH (21:23)
[2017-08-09] MEDS ORDERED: CEFEPIME HCL 1 GM VIAL IV SCH (22:00)
[2017-08-09 23:17] VITALS: BP 159/69
[2017-08-09 23:27] VITALS: BP 159/69
[2017-08-10] VITALS (7 sets, daily range): BP systolic 125–159; BP diastolic 70–86
[2017-08-10] MEDS: CEFEPIME HCL 1 GM VIAL IV SCH ×3 (01:50→18:00)
[2017-08-10] MEDS: SODIUM CHLORIDE 0.9% 1000ML 1,000 ML IV SCH ×3 (05:34→17:07)
[2017-08-10 07:20] LABS: BASOPHILS # (AUTO) 0.1 (0.0-0.1); BASOPHILS % 0.7 % (0.0-1.0); EOSINOPHILS # (AUTO) 0.2 (0.0-0.4); EOSINOPHILS % 2.3 % (0.0-6.0); HEMATOCRIT 29.8 % (34.2-44.1); HEMOGLOBIN 9.7 g/dL (12.0-16.0); LYMPHOCYTES # (AUTO) 2.6 (1.0-3.2); LYMPHOCYTES % 29.9 % (18.0-39.1); MEAN CORPUSCULAR HEMOGLOBIN 29.2 pg (28-32); MEAN CORPUSCULAR HGB CONC 32.6 g/dL (31-35); MEAN CORPUSCULAR VOLUME 89.8 fL (81-99); MONOCYTES # (AUTO) 0.9 (0.2-0.8); MONOCYTES % 9.9 % (4.4-11.3); NEUTROPHILS % 56.6 % (38.7-80.0); PLATELET COUNT 384 x10e3/uL (140-360); RED BLOOD COUNT 3.32 x10e6/uL (3.6-5.1); RED CELL DISTRIBUTION WIDTH 12.9 % (11.7-14.4)
[2017-08-10 07:39] LABS: INR 1.08; PROTHROMBIN TIME 13.2 seconds (11.9-14.5)
[2017-08-10 07:40] LABS: PARTIAL THROMBOPLASTIN TIME 31.1 seconds (23.8-35.5)
[2017-08-10 07:45] LABS: ALANINE AMINOTRANSFERASE 12 IU/L (0-55); ALBUMIN 3.1 g/dL (3.5-5.0); ALBUMIN/GLOBULIN RATIO 0.9 (0.8-2.0); ALKALINE PHOSPHATASE 95 IU/L (40-150); ANION GAP 11.9 mmol/L (8-16); BLOOD UREA NITROGEN 19 mg/dL (7-26); BUN/CREATININE RATIO 22 (6-25); CALCIUM 9.1 mg/dL (8.4-10.2); CARBON DIOXIDE 24 mmol/L (22-29); CHLORIDE 109 mmol/L (98-107); CREATININE, SERUM 0.88 mg/dL (0.57-1.11); EST GLOMERULAR FILTRATION RATE > 60 ML/MIN (60-); GLUCOSE 94 mg/dL (74-118); POTASSIUM 3.9 mmol/L (3.5-5.1); SODIUM 141 mmol/L (136-145)
[2017-08-10] MEDS: CIPROFLOXACIN 400 MG/D5W 200ML 200 ML IV SCH ×2 (09:00→20:56)
--- NOTE | 2017-08-10 10:03 | History and Physical ---
PRIMARY CARE PHYSICIAN: Dr. Dwyer INFECTIOUS DISEASE: Dr. Rogel ORTHOPEDIC: Dr. Hernandez CHIEF COMPLAINT: Infection of the right hip. HISTORY OF PRESENT ILLNESS: This is a 71-year-old woman with a history of arthritis, status post right hip replacement in June 2017. Subsequently, developing pain at the site. Had a washout procedure done subsequently. Then blood cultures and other tests obtained. The patient was found to have an elevated white blood cell count, and now the patient was sent to the hospital by Dr. Rogel. Based on the records that are available to me, it appears that the patient may have had bacteremia. The organism I am unclear of at this time. The patient is admitted here for management. She denies any chills at home. Denies any fever. Denies any chest pain or shortness of breath. Denies any diarrhea. She denies any erythema or swelling at the surgical site, but does have itching at times at that site and with minimal discomfort at those times. PAST MEDICAL HISTORY: Hypertension, hyperlipidemia, osteoarthritis, status post right hip replacement in June 2017. PAST SURGICAL HISTORY: Neck surgery in 2013, right hip replacement in June 2017, status post washout procedure. ALLERGIES: PER ELECTRONIC MEDICAL RECORDS. FAMILY HISTORY/SOCIAL HISTORY: The patient is . She has 1 child. Occasional alcohol. No illicits or cigarettes. MEDICATIONS: Per electronic medical records. REVIEW OF SYSTEMS: Denies any dizziness or chest pain. PHYSICAL EXAMINATION VITAL SIGNS: Have been reviewed. GENERAL: A tired-appearing woman resting in bed. HEENT: Anicteric. Pupils respond to light. No oral lesions. CARDIOVASCULAR: Normal S1 and S2. LUNGS: Good breath sounds. No wheezing. ABDOMEN: Soft, nontender and nondistended. EXTREMITIES: She has a right hip with the surgical site visible. She has sutures in place. Site is clean and dry. No surrounding erythema. No tenderness at the site. No fluctuance. No induration. No edema or calf tenderness. NEUROLOGICAL: Alert and oriented times 3. Moving all extremities. SKIN: Dry. PSYCHIATRIC: Normal affect. LABS: Reviewed. MEDICATIONS: Reviewed. ASSESSMENT AND PLAN: This is a 71-year-old woman with: 1. Presumed bacteremia: The patient has been started on intravenous cefepime and intravenous ciprofloxacin. Will defer to Dr. Rogel from infectious disease for further clarification. In the meantime, she did have leukocytosis yesterday, but that is resolving. Will obtain a sed rate and a CRP. 2. Acute kidney injury: Will rehydrate the patient and reassess. 3. Normocytic anemia which is mild to moderate: Will follow. 4. Overweight state: Body mass index 26.6. Will screen for diabetes. 5. Prophylaxis: Will use Lovenox and Pepcid. 6. Disposition: Follow up with Dr. Rogel. Continue current intravenous antibiotics. Obtain sed rate and CRP. Screen for diabetes. Job#: [id number] JACKLYN
[2017-08-10 10:05] LABS: CHOL/HDL RATIO 2.7 (3.0-3.6)
--- NOTE | 2017-08-10 13:47 | Consultation ---
DATE OF CONSULTATION: ORTHOPEDIC CONSULTATION REASON FOR CONSULTATION: Right hip infection. HISTORY OF PRESENT ILLNESS: The patient is a 71-year-old female who is well known to us, who is status post right total hip arthroplasty last month. The patient subsequently developed a hematoma in the left hip wound. This was treated with an irrigation and debridement and washout of the hematoma. At the time, cultures were obtained. These showed a rare culture of Proteus mirabilis. The patient was seen by Dr. Rogel and sent to the hospital for a PICC line placement and start initiation of IV antibiotics. At this time, the patient denies any significant right hip pain. She denies any culture. She denies any fever or chills. PAST MEDICAL HISTORY: See H and P. PHYSICAL EXAMINATION: In general, she is pleasant and in no apparent distress. She is awake, alert and oriented appropriately. Gross inspection of her right hip shows the incision is healing well without any signs of infection. There is no drainage. There is no surrounding erythema. The sutures are intact. There is mild swelling in the thigh and calf. There is no calf tenderness. Distal neurovascular exam is normal. ASSESSMENT AND PLAN: This is a 71-year-old female with a right hip wound infection, who is also status post right total hip arthroplasty. Findings and treatment were discussed with the patient. The concern is that the infection would involve the prosthesis. She will need to be treated with IV antibiotics for six to eight weeks. We will defer to Dr. Rogel for antibiotic therapy. She already has a PICC line. She should be able to go home once home IV antibiotic is set up. She already has an appointment to see us early next week for removal of her stitches. All of the patient's questions were answered. Thank you for the consultation. Dictated by Sudarshan Johnson PA-C. Job#: [id number]
--- NOTE | 2017-08-10 16:04 | Consultation ---
DATE OF CONSULTATION: REASON FOR CONSULTATION: Surgical infection of the right hip. HISTORY OF PRESENT ILLNESS: This patient, who is very pleasant, underwent right total hip replacement. She did good. The patient had the procedure in June 2017. The patient a few weeks later had some pain. This was some drainage from the wound. The patient underwent evaluation by Dr. Hernandez and underwent surgical wound debridement. The patient grew gram negative. Discussed with the patient that I think she needs IV antibiotic. She is having some pain, so it would probably be better to just admit her while we arrange a PICC line and work on IV antibiotic. The patient did agree. The patient denies any fever or chills. She does have some pain. PAST MEDICAL HISTORY: Hypertension, hyperlipidemia, osteoarthritis, status post total hip replacement in June 2017 and then surgical wound debridement. I discussed with Dr. Hernandez. It was superficial and does not communicate with the prosthesis. PAST SURGICAL HISTORY: Neck surgery, right hip replacement and washout procedure. ALLERGIES: NKA. SOCIAL HISTORY: There is no smoking, drug abuse or alcohol abuse. FAMILY HISTORY: Otherwise unremarkable. MEDICATION LIST: Reviewed. PHYSICAL EXAMINATION GENERAL: She is currently alert and oriented, does not seem to be in acute distress. VITALS: Stable, afebrile. HEENT: Normocephalic. Nonicteric. NECK: Supple. CHEST: Clear. COR: S1 and S2. ABDOMEN: Soft. Bowel sounds. No tenderness. HIP: There is slight erythema noted. IMPRESSION: The patient's surgical wound infection is superficial. PLAN: Get a PICC line. Cefepime 2 g q.12 h. Weekly CBC. Weekly chem panel. Obtain a sed rate and C-reactive protein. Will also add Cipro 500 mg p.o. b.i.d. Recheck CBC. Recheck chem panel. Plan is for 6 weeks, and we will see her every 2 weeks, then discontinue and then re-evaluate. Discussed with the patient. Discussed with Dr. Hernandez. Thank you so much for asking me to see this patient. Job#: [id number]
[2017-08-10] MEDS: FAMOTIDINE 20 MG TAB PO SCH (16:30)
[2017-08-10] MEDS: ENOXAPARIN SOD INJ 40 MG/0.4 ML SYR SC SCH (17:00)
[2017-08-11] MEDS: CEFEPIME HCL 1 GM VIAL IV SCH ×3 (01:00→18:00)
[2017-08-11] MEDS: SODIUM CHLORIDE 0.9% 1000ML 1,000 ML IV SCH ×2 (01:07→09:07)
[2017-08-11 04:00] VITALS: BP 142/73
[2017-08-11] MEDS: FAMOTIDINE 20 MG TAB PO SCH ×2 (07:30→16:30)
[2017-08-11 07:59] VITALS: BP 139/67
[2017-08-11] MEDS: CIPROFLOXACIN 400 MG/D5W 200ML 200 ML IV SCH (09:00)
--- NOTE | 2017-08-11 09:15 | Progress Note ---
DATE: August 11, 2017 TIME: 8:46 a.m. OVERNIGHT: No events. REVIEW OF SYSTEMS: Denies any dizziness. PHYSICAL EXAMINATION VITAL SIGNS: Reviewed. GENERAL: A tired-appearing woman resting in bed. HEENT: Anicteric. CARDIOVASCULAR: Normal S1 and S2. LUNGS: Moderate breath sounds. ABDOMEN: Soft, nontender and nondistended. EXTREMITIES: She has right hip with dry surgical site visible clean and dry. Sutures visible. SKIN: Dry. PSYCHIATRIC: Normal affect. NEUROLOGICAL: Alert and oriented times 3. LABS: Reviewed. MEDICATIONS: Reviewed. ASSESSMENT: A 71-year-old woman with: 1. Right hip infection at surgical site with possibly a prosthesis involvement. 2. Acute kidney injury. 3. Normocytic anemia. 4. Overweight state. 5. Physical deconditioning. PLAN 1. Continue IV antibiotics. The patient is on IV cefepime and IV ciprofloxacin. Plan is for [address] Rogel. 2. Continue pain control. 3. Continue physical therapy. 4. Discharge planning. 5. Leukocytosis has resolved. Job#: [id number] NM
[2017-08-11] MEDS ORDERED: AMLODIPINE BESYLATE 5 MG TAB PO SCH (09:42)
[2017-08-11] MEDS ORDERED: HYDROCHLOROTHIAZIDE 25 MG TAB PO SCH (09:43)
[2017-08-11] MEDS ORDERED: OXYBUTYNIN CHLORIDE 5 MG TAB PO SCH (09:44)
[2017-08-11 11:54] VITALS: BP 111/62
[2017-08-11 16:29] VITALS: BP 143/70
[2017-08-11] MEDS: ENOXAPARIN SOD INJ 40 MG/0.4 ML SYR SC SCH (17:00)
[2017-08-11] MEDS ORDERED: ATORVASTATIN 10 MG TAB PO SCH (21:00)
[2017-08-12] MEDS ORDERED: AMLODIPINE BESYLATE 5 MG TAB PO SCH (09:00)
[2017-08-12] MEDS ORDERED: OXYBUTYNIN CHLORIDE 5 MG TAB PO SCH (09:00)
[2017-08-12] MEDS ORDERED: HYDROCHLOROTHIAZIDE 25 MG TAB PO SCH (09:00)
--- NOTE | 2017-08-12 09:05 | Pre Op History & Physical ---
CHIEF COMPLAINT: Right hip pain. HISTORY OF PRESENT ILLNESS: This patient is a 71-year-old female who complains of right hip pain for roughly 7 months. She states the pain has gotten progressively worse. She localizes pain to the right groin region. She states she has increased pain with walking or standing. She states she has noticed a marked decrease in her range of motion over the last year. She has tried physical therapy, as well as anti-inflammatories without lasting relief. She would now like to discuss more aggressive intervention. PAST MEDICAL HISTORY: Hypertension. PAST SURGICAL HISTORY: Neck surgery. SOCIAL HISTORY: The patient denies smoking. She is a social drinker. ALLERGIES: ADVIL. CURRENT MEDICATIONS: Amlodipine, hydrochlorothiazide, [id number], naproxen. REVIEW OF SYSTEMS: All negative other than right hip pain. PHYSICAL EXAMINATION GENERAL: She appears somewhat uncomfortable. She is awake, alert and oriented appropriately. EXTREMITIES: She ambulates slowly and somewhat uncomfortably. She has trouble getting up and down off the examination table. She has trouble lying down in the supine position. She has severely limited and painful passive range of motion in both hips, which is worse on the right. Limb lengths are grossly equal. Distal neurovascular exam is normal. IMAGING: X-rays of her pelvis and right hip show severe end-stage arthritis in the right hip. ASSESSMENT AND PLAN: This is a 71-year-old female with bilateral osteoarthritis of the hips. Her findings and options were discussed with the patient. Further conservative management is not likely to improve her quality of life. The risks and benefits of a right total hip replacement were explained. The recovery was discussed. Implants were explained to the patient. The hospital stay was explained. The patient states she understands and wishes to proceed. We will get her on the schedule for a right total hip replacement. DICTATED BY SHAZIA ESPINO PA-C, Job#: [id number] JACKLYN
== END 2017-08-11 18:45 | disposition home health service (06) | DRG 560 ==
LOC: ER 15:02 → ERHOLD 17:29 → MED/SURG3 18:14
PROVIDERS: ADMIT Internal Medicine; ATTEND Internal Medicine
PROC: 02HV33Z Insertion of Infusion Device into Superior Vena Cava, Percutaneous Approach (ICD-10-PCS; principal; 2017-08-09)
DX: T84.51XA Infection and inflammatory reaction due to internal right hip prosthesis, initial encounter (principal); T81.4XXA Infection following a procedure, initial encounter; N17.9 Acute kidney failure, unspecified; Z96.641 Presence of right artificial hip joint; B96.4 Proteus (mirabilis) (morganii) as the cause of diseases classified elsewhere; M16.11 Unilateral primary osteoarthritis, right hip; D64.9 Anemia, unspecified; E66.3 Overweight; Z68.26 Body mass index [BMI] 26.0-26.9, adult
CPT/HCPCS: 36415; 36569; 71045; 80053; 80061; 82550; 82553; 83036; 84484; 85025; 85610; 85651; 85730; 86140; 93005; 96361; 99284; J0692; J1650; J7030

== ENCOUNTER 2017-12-19 07:38 | Inpatient (IN) | payer MEDICARE, OTHER ==
[~2017-12-19] VITALS: Ht 162.6 cm; Wt 72.8 kg
[~2017-12-19 07:38] MED LIST changes: +BACITRACIN 50,000 UNIT VIAL ONE; +CEFAZOLIN SOD 2 GM/D5W 50ML 50 ML IV ONE; +CELECOXIB 200 MG CAP ONE; +DEXAMETHASONE SOD PHOS 10 MG/1 ML VIAL ONE; +GABAPENTIN 300 MG CAP ONE; +HAIR, SKIN & N1 EACH PO; +IBUPROFEN200 MG PO; +MUPIROCIN 2% OINT 22 GM TUBE ONE; +OSTEO BI-FLEX1 EAC2 PO; +ROPIVACAINE 246.25 MG, EPINEPHRINE HCL 1:1000 0.5 MG, CLONIDINE HCL 0.08 MG, KETOROLAC ... INJ ONE; +TRANEXAMIC ACID 1,000 MG/10 ML ML ONE; +TYLENOL ARTHRITIS PO; +VIT C PO
[2017-12-19] MEDS: SODIUM CHLORIDE 0.9% 1000ML 1,000 ML IV SCH ×2 (09:37→19:37)
[2017-12-19] MEDS ORDERED: HYDROCODONE/APAP 5MG-325MG TAB PO PRN (09:45)
[2017-12-19] MEDS ORDERED: DOCUSATE SODIUM 100 MG CAP PO PRN (09:45)
[2017-12-19] MEDS ORDERED: ACETAMINOPHEN 650 MG SUPP PR PRN (09:45)
[2017-12-19] MEDS ORDERED: ONDANSETRON HCL INJ 2 MG/ML VIAL IV PRN (09:45)
[2017-12-19] MEDS ORDERED: KETOROLAC TROMETHAMINE 30 MG/ML VIAL IV PRN (09:45)
[2017-12-19] MEDS ORDERED: PROMETHAZINE HCL (IM) 25 MG/ML VIAL IM PRN (09:45)
[2017-12-19] MEDS ORDERED: DIPHENHYDRAMINE HCL INJ 50 MG/ML VIAL IM/IV PRN (09:45)
[2017-12-19 11:14] VITALS: BP 139/63
[2017-12-19 11:22] VITALS: BP 139/63
[2017-12-19 11:44] VITALS: BP 139/63
[2017-12-19] MEDS: ACETAMINOPHEN 1000 MG/100 ML IV SCH ×2 (12:08→17:22)
[2017-12-19] MEDS: VANCOMYCIN 1GM/NS 250 ML 250 ML IV SCH (12:11)
--- NOTE | 2017-12-19 12:16 | Diagnostic Imaging Report ---
PROCEDURE:X-RAY PELVIS, AP VIEW COMPARISON:[facility], DX, PELVIS AP 1-2 VIEWS, 07/18/2017, 10:28. INDICATIONS:STATUS POST LEFT HIP SURGERY FINDINGS: Left hip prosthesis has been placed into excellent anatomic alignment without associated fracture. Right hip prosthesis is stable in appearance without fracture or lucency to suggest loosening. There is air in the soft tissues surrounding the left hip at the operative site. CONCLUSION: As above. Dictated by: Nixon Wren M.D. on 12/19/2017 at 12:20 Electronically approved by: Nixon Wren M.D. on 12/19/2017 at 12:20
--- NOTE | 2017-12-19 14:09 | Operative Report ---
DATE OF PROCEDURE: December 19, 2017 QUALITY CONSULTANT: Sudarshan Johnson PA-C The patient was brought to the operating room for induction of anesthesia. Throughout this case, my PA's assistance was necessary for retraction of soft tissue and positioning of the extremity. This allows for efficient and technically successful execution of the operation and is considered medically necessary. PREOPERATIVE DIAGNOSIS: Osteoarthritis left hip. POSTOPERATIVE DIAGNOSIS: Osteoarthritis left hip. PROCEDURE: Left total hip arthroplasty. INDICATIONS: The patient is a 72-year-old lady who has end-stage arthritis in her left hip. She has failed conservative management and would like to proceed with a left total hip replacement. The risks and benefits have been discussed. She has been through this on the right side. She understands the plan of care and wishes to proceed. DESCRIPTION OF PROCEDURE: The patient was brought to the operating room and given a spinal anesthetic. She received prophylactic antibiotics and tranexamic acid in the holding area. Her left hip was prepped and draped in a sterile manner. She was positioned in the right lateral decubitus position. A preoperative time out was performed. A limited incision posterior approach was made to the left hip. Hemostasis was obtained with electrocautery. A deep self-retaining Charnley retractor was placed. Care was taken to avoid injury to the sciatic nerve. The posterior capsule was carefully exposed. Additional hemostasis was obtained with electrocautery. The posterior capsule and short external rotators were released with the exception of the pyriformis. The hip was brought up into flexion and internal rotation and dislocated. An oscillating saw was used to resect the femoral head. Complete loss of articular cartilage was noted. Acetabular retractors were carefully placed. Additional soft-tissue releases were necessary due to the severe contracture of the hip. Once the acetabulum was carefully exposed, the true floor of the acetabulum was established with a 46 mm reamer. The socket was then sequentially reamed up to 53 mm. This accomplished bleeding hemispherical cancellous bone. A [employer] 54 mm outer diameter OsseoTi socket was then impacted into place. Fixation was augmented with a single 20 mm screw placed into the ilium. A highly crosslinked polyethylene liner with a 36 mm inner diameter was then seated into place. Care was taken to make sure that there was no evidence of soft-tissue interposition. The hip had been irrigated multiple times with a shower-tip pulsatile lavage during this portion of the case. A portion of a 100 mL premixed pericapsular injection was placed into the surrounding soft tissue. The socket was packed with a moistly soaked lap sponge, and attention was directed towards the proximal femur. A box-cutting osteotome and taper pin reamer were used to establish entry to the femoral canal. The [employer] Taperloc broaches were then impacted. The distal canal was quite tight in comparison to the contralateral side. A number 5 stem had tight canal fill and rotational stability to allow for trial reductions. A standard 36 mm head and neck were felt to provide optimal catholic of limb length, soft-tissue balancing and stability through a full arc of motion. The trial components were then removed. The femoral canal was further irrigated with a pulsatile lavage. The implants were opened and seated into the canal. Excellent stability was obtained. A final reduction was performed with a standard neck and 36 mm head. The wound was further irrigated, and the remainder of the UMRPHY injection was placed. The posterior capsule was repaired with number 2 Ethibond. The proximal tensor fascia was closed with number 2 Ethibond as was the gluteal fascia. The skin was closed with subcuticular Vicryl and rosie. She was returned to the supine position and transported to the recovery room in stable condition. Blood loss was approximately 75 mL, and all needle and sponge counts were correct. Job#: [id number] EV
[2017-12-19] MEDS ORDERED: FENTANYL CITRATE/PF 100MCG/2 ML INJ ONE (14:58)
[2017-12-19] MEDS ORDERED: MIDAZOLAM HCL 2 MG/2 ML VIAL ONE (14:58)
[2017-12-19 16:00] VITALS: BP 139/70
[2017-12-19] MEDS ORDERED: CELECOXIB 100 MG CAP PO SCH (17:00)
[2017-12-19] MEDS: CELECOXIB 200 MG CAP PO SCH (17:21)
[2017-12-19] MEDS: ASPIRIN 325 MG TAB PO SCH (17:21)
[2017-12-19] MEDS ORDERED: BUPIVACAINE HCL 0.5% INJ 30 ML VIAL INJ ONE (17:44)
[2017-12-19] MEDS ORDERED: PROPOFOL IV EMULSION 10 MG/ML 20 ML VIAL ONE (18:11)
[2017-12-19] MEDS ORDERED: LIDOCAINE HCL 2% LOCAL INJ 5 ML SDV VIAL INJ ONE (18:11)
[2017-12-19] MEDS ORDERED: ACETAMINOPHEN 1000 MG/100 ML IV ONE (18:11)
[2017-12-19 20:00] VITALS: BP 152/72
[2017-12-19] MEDS ORDERED: ZOLPIDEM TARTRATE 5 MG TAB PO PRN (21:00)
[2017-12-19] MEDS ORDERED: ATORVASTATIN 10 MG TAB PO SCH (21:00)
[2017-12-19] MEDS: HYDROCODONE/APAP 7.5MG-325MG 1 EA TAB PO PRN ×2 (22:19→23:04)
[2017-12-20] VITALS: BP 147/73
[2017-12-20] MEDS: VANCOMYCIN 1GM/NS 250 ML 250 ML IV SCH
[2017-12-20 04:00] VITALS: BP 144/72
[2017-12-20] MEDS: SODIUM CHLORIDE 0.9% 1000ML 1,000 ML IV SCH (05:37)
[2017-12-20] MEDS: ACETAMINOPHEN 1000 MG/100 ML IV SCH ×2 (05:48)
[2017-12-20 06:46] LABS: HEMOGLOBIN 11.2 g/dL (12.0-16.0)
[2017-12-20 07:52] VITALS: BP 152/70
[2017-12-20 08:00] VITALS: BP 152/70
[2017-12-20] MEDS: CELECOXIB 200 MG CAP PO SCH (08:10)
[2017-12-20] MEDS: ASPIRIN 325 MG TAB PO SCH (08:10)
[2017-12-20] MEDS ORDERED: HYDROCHLOROTHIAZIDE 25 MG TAB PO SCH (09:00)
[2017-12-20] MEDS ORDERED: AMLODIPINE BESYLATE 5 MG TAB PO SCH (09:00)
[2017-12-20] MEDS ORDERED: ACETAMINOPHEN 1000 MG/100 ML IV PRN (09:45)
[2017-12-20] MEDS: HYDROCODONE/APAP 7.5MG-325MG 1 EA TAB PO PRN (11:28)
[2017-12-20 11:57] VITALS: BP 138/65
[2017-12-20] MEDS ORDERED: ASPIRIN325 MG PO (13:09)
[2017-12-20] MEDS ORDERED: NORCO 7.5-3251 EACH PO (14:09)
== END 2017-12-20 14:40 | disposition home health service (06) | DRG 470 ==
LOC: OR 07:38 → PACU V 09:39 → MED/SURG 11:08
PROVIDERS: ADMIT Specialist; ATTEND Specialist
PROC: 0SRB0JZ Replacement of Left Hip Joint with Synthetic Substitute, Open Approach (ICD-10-PCS; principal; 2017-12-19 08:30)
DX: M16.12 Unilateral primary osteoarthritis, left hip (principal); I10 Essential (primary) hypertension; E78.5 Hyperlipidemia, unspecified; D64.9 Anemia, unspecified; Z96.641 Presence of right artificial hip joint
CPT/HCPCS: 36415; 72170; 85014; 85018; 86850; 86900; 86920; 86922; C1713; J0171; J1100; J1885; J2001; J2250; J2795; J3370

== ENCOUNTER → 2020-01-01 | Day surgery (SDC) | payer OTHER ==
--- NOTE | 2019-12-27 16:09 | Diagnostic Imaging Report ---
EXAMINATION: CHEST 2 VIEWS INDICATION: Pre-operative COMPARISON: Chest radiograph 08/09/2017 FINDINGS: LINES/TUBES:None LUNGS:The lungs are well-inflated. No focal consolidation or pulmonary edema. PLEURA:No pleural effusion or pneumothorax. MEDIASTINUM:The cardiomediastinal silhouette appears normal in size and shape. BONES/SOFT TISSUES:No acute osseous injury. ABDOMEN:No free air under the diaphragm. IMPRESSION: No focal pneumonia or pulmonary edema. Signed by: Angie Bianchi MD on 12/27/2019 4:06 PM
[2019-12-27 16:17] LABS: BASOPHILS # (AUTO) 0.1 (0.0-0.1); BASOPHILS % 0.6 % (0.0-1.0); EOSINOPHILS # (AUTO) 0.1 (0.0-0.4); EOSINOPHILS % 0.9 % (0.0-6.0); HEMATOCRIT 41.3 % (34.2-44.1); HEMOGLOBIN 13.4 g/dL (12.0-16.0); LYMPHOCYTES # (AUTO) 3.3 (1.0-3.2); LYMPHOCYTES % 25.7 % (18.0-39.1); MEAN CORPUSCULAR HEMOGLOBIN 29.5 pg (28-32); MEAN CORPUSCULAR HGB CONC 32.4 g/dL (31-35); MEAN CORPUSCULAR VOLUME 90.8 fL (81-99); MONOCYTES % 7.4 % (4.4-11.3); NEUTROPHILS # (AUTO) 8.3 (2.1-6.9); PLATELET COUNT 313 x10e3/uL (140-360); RED BLOOD COUNT 4.55 x10e6/uL (3.6-5.1); RED CELL DISTRIBUTION WIDTH 12.9 % (11.7-14.4)
[2019-12-27 20:13] LABS: INR 0.9; PARTIAL THROMBOPLASTIN TIME 26.4 seconds (23.8-35.5); PROTHROMBIN TIME 9.9 seconds (11.9-14.5)
[~2020-01-01] MED LIST changes: -BACITRACIN 50,000 UNIT VIAL ONE; +BUPIVACAINE HCL 0.5% INJ 30 ML VIAL INJ ONE; +CEFAZOLIN SOD 1 GM/NS 50ML 50 ML IV ONE; -CEFAZOLIN SOD 2 GM/D5W 50ML 50 ML IV ONE; -CELECOXIB 200 MG CAP ONE; +COLLAGEN C PO; -DEXAMETHASONE SOD PHOS 10 MG/1 ML VIAL ONE; -GABAPENTIN 300 MG CAP ONE; -MUPIROCIN 2% OINT 22 GM TUBE ONE; +NORCO 7.5-3251 EACH PO; -ROPIVACAINE 246.25 MG, EPINEPHRINE HCL 1:1000 0.5 MG, CLONIDINE HCL 0.08 MG, KETOROLAC ... INJ ONE; -TRANEXAMIC ACID 1,000 MG/10 ML ML ONE
--- NOTE | 2020-01-01 10:26 | Operative Report ---
DATE OF PROCEDURE: 01/01/2020 SURGEON: Amilcar Cabezas MD PREOPERATIVE DIAGNOSIS: Right carpal tunnel syndrome. POSTOPERATIVE DIAGNOSIS: Right carpal tunnel syndrome. PROCEDURE: Right carpal tunnel release. ANESTHESIA: General. INDICATIONS: The patient is a 74-year-old woman, who presents with severe right carpal tunnel syndrome, was taken to surgery for carpal tunnel release. PROCEDURE IN DETAIL: After induction of general anesthesia, the patient was placed on the operating table in supine position with the right arm abducted over a hand table. The right hand, wrist, and forearm were prepped and draped in a sterile fashion. The tourniquet was inflated over the upper arm to 250 mmHg. A small midline incision was created over the median palmar crease of the hand just distal to the distal flexor crease of the wrist. The subcutaneous fat was divided. Transverse carpal ligament was identified and incised with a #15 C blade until the underlying median nerve came into view. As the assistant account executive retracted the skin edges, the transverse carpal ligament was divided proximally and distally until the full length of the ligament had been divided within the carpal tunnel and the median nerve was fully exposed and decompressed. The point of maximum compression of nerve appeared to be about 2.5 cm distal to the distal flexor crease of the wrist where the ligament was at its thickest. More distally, the recurrent motor branch of the nerve was preserved within this fat pad. The wound was irrigated with bacitracin solution. Hemostasis was secured. The retractor was removed. The subcutaneous layer was closed with 3-0 Vicryl suture. The skin was closed with 3-0 nylon suture in a horizontal mattress fashion. A dressing was applied. The patient was awakened, extubated, and taken to postanesthesia care unit in stable condition. No intraoperative complications were encountered. Estimated blood loss was minimal. Amilcar Cabezas MD PP/MODL /[id number]
[2020-01-01 10:45] VITALS: BP 134/76
== END | disposition home or self-care (01) ==
LOC: OR 06:29
PROVIDERS: ATTEND Neurological Surgery
DX: G56.01 Carpal tunnel syndrome, right upper limb (principal); I10 Essential (primary) hypertension; Z88.8 Allergy status to other drugs, medicaments and biological substances; Z01.812 Encounter for preprocedural laboratory examination; Z01.818 Encounter for other preprocedural examination; Z11.59 Encounter for screening for other viral diseases; Z79.82 Long term (current) use of aspirin
CPT/HCPCS: 36415; 64721; 71046; 85025; 85610; 85730; 87635; J0690